=== PATIENT | female | born 1985 | race Two or more races ===

== ENCOUNTER 2020-10-06 06:40 | Inpatient (IN) | payer OTHER ==
[~2020-10-06] VITALS: Ht 152.4 cm; Wt 65.8 kg
[2020-10-06] MEDS ORDERED: PRENATAL TABLE1 EAC1 PO (07:50)
== END 2020-10-08 13:39 | disposition home or self-care (01) | DRG 807 ==
LOC: OB/GYN 06:40 → LDR 06:40 → OB/GYN 10-07 14:17
PROVIDERS: ADMIT Obstetrics & Gynecology; ATTEND Obstetrics & Gynecology
PROC: 10E0XZZ Delivery of Products of Conception, External Approach (ICD-10-PCS; principal; 2020-10-06)
PROC: 4A1HXFZ Monitoring of Products of Conception, Cardiac Rhythm, External Approach (ICD-10-PCS; 2020-10-06)
DX: O80 Encounter for full-term uncomplicated delivery (principal); Z37.0 Single live birth; Z3A.39 39 weeks gestation of pregnancy; Z20.822 Contact with and (suspected) exposure to COVID-19